=== PATIENT | male | born 1995 | race Hispanic/Latino ===

== ENCOUNTER 2019-01-16 11:07 | Emergency (ER) | payer MEDICAID, OTHER ==
[2019-01-16] MEDS ORDERED: CEFTRIAXONE SODIUM 500 MG VIAL ONE (11:54)
[2019-01-16 11:55] LABS: APPEARANCE,URINE Clear (CLEAR); BILIRUBIN,URINE Negative (NEGATIVE); COLOR,URINE Yellow (YELLOW); GLUCOSE, URINE (UA) Negative (NEGATIVE); KETONES,URINE Trace mg/dL (NEGATIVE); LEUKOCYTE ESTERASE ,URINE Small (NEGATIVE); NITRATE,URINE Negative (NEGATIVE); OCCULT BLOOD,URINE Small (NEGATIVE); PROTEIN,URINE Negative (NEGATIVE)
[2019-01-16] MEDS ORDERED: AZITHROMYCIN 250 MG TABLET PO ONE (11:55)
[2019-01-16] MEDS ORDERED: LIDOCAINE HCL-MPF 1% 2ML VIAL ONE (11:55)
[2019-01-16 12:21] LABS: BACTERIA,URINE Rare /HPF (None Seen); MUCUS,URINE Rare LPF (None Seen); RBC,URINE 0-1 /HPF (0-1); SQUAMOUS EPITHELIAL CELL,UR Rare /HPF (0-2)
== END 2019-01-16 12:27 | disposition home or self-care (01) ==
LOC: EDH 11:07
DX: R30.0 Dysuria (principal); R36.9 Urethral discharge, unspecified
CPT/HCPCS: 81001; 87486; 87797; 96372; 99283; J0696; J3490